=== PATIENT | female | born 1985 | race Caucasian/White ===

== ENCOUNTER 2018-12-13 20:23 | Emergency (ER) | payer MEDICAID ==
[~2018-12-13] VITALS: Ht 160 cm; Wt 0.5 kg
[2018-12-13 21:41] LABS: AMPHET/METH SCREEN,URINE NEGATIVE (NEGATIVE); BARBITURATE SCREEN, URINE NEGATIVE (NEGATIVE); BENZODIAZEPINES SCREEN,URINE NEGATIVE (NEGATIVE); CANNABINOID SCREEN,URINE NEGATIVE (NEGATIVE); COCAINE SCREEN,URINE NEGATIVE (NEGATIVE); METHADONE SCREEN, URINE NEGATIVE (NEGATIVE); OPIATE SCREEN,URINE NEGATIVE (NEGATIVE); PHENCYCLIDINE SCREEN,URINE NEGATIVE (NEGATIVE)
[2018-12-13 22:02] VITALS: BP 127/84
== END 2018-12-13 22:13 | disposition home or self-care (01) ==
LOC: EMS 20:24
DX: R35.0 Frequency of micturition (principal)

== ENCOUNTER 2023-05-26 00:22 | Emergency (ER) | payer MEDICAID ==
[~2023-05-26] VITALS: Ht 160 cm; Wt 52.3 kg
[2023-05-26 00:42] VITALS: BP 135/82; PULSE 89; RESP 17; TEMP 98.3
[2023-05-26] MEDS: TUBERCULIN, PURIFIED PROTEIN DERIVATIVE 5 TU/0.1 ML SYRINGE ID ONE (02:14)
[2023-05-26] MEDS ORDERED: DOXY-354 PO (02:24)
[2023-05-26] MEDS ORDERED: CEPH-558 PO (02:24)
[2023-05-26] MEDS ORDERED: MUPI15CR12 TP (02:24)
== END 2023-05-26 02:43 | disposition home or self-care (01) ==
LOC: EMS 00:22
DX: L02.92 Furuncle, unspecified (principal); Z11.1 Encounter for screening for respiratory tuberculosis
CPT/HCPCS: 99283

== ENCOUNTER 2024-06-03 18:36 | Emergency (ER) | payer SELFPAY ==
[~2024-06-03] VITALS: Ht 160 cm; Wt 50.0 kg
[~2024-06-03 18:36] MED LIST: CEPH-558 PO; DOXY-354 PO; MUPI15CR12 TP
[2024-06-03 19:16] LABS: BASOPHILS % (AUTO) 0.4 % (0.0-2.0); EOSINOPHILS % (AUTO) 0 % (1.0-6.0); HEMATOCRIT 38.2 % (36-46); HEMOGLOBIN 12.6 g/dL (12.0-16.0); LYMPHOCYTES # (AUTO) 1.3 K/uL (1.0-4.8); LYMPHOCYTES % (AUTO) 11.3 % (22.0-44.0); MEAN CORPUSCULAR HEMOGLOBIN 30.4 pg (26.0-34.0); MEAN CORPUSCULAR VOLUME 92 fL (80-100); MONOCYTES # (AUTO) 1.5 K/uL (0.1-1.0); MONOCYTES % (AUTO) 13.6 % (2.0-9.0); NEUTROPHILS # (AUTO) 8.4 K/uL (1.8-7.7); NEUTROPHILS % (AUTO) 74.7 % (40.0-70.0); PLATELET COUNT (AUTO) 252 K/uL (150-450); RED BLOOD CELL COUNT(AUTO) 4.14 MIL/uL (4.00-5.20); WHITE BLOOD COUNT (AUTO) 11.2 K/uL (4.5-11.0)
[2024-06-03 19:24] LABS: ANION GAP 8 mmol/L (8-16); CALCIUM, TOTAL 8.8 mg/dL (8.8-10.5); CARBON DIOXIDE 27 mmol/L (22-29); CHLORIDE 100 mmol/L (98-107); CREATININE 0.71 mg/dL (0.60-1.30); GLOMERULAR FILTR. RATE CALC > 60 mL/min (>60); GLUCOSE,RANDOM 91 mg/dL (70-110); LIPASE 15 U/L (16-77); POTASSIUM 4.1 mmol/L (3.5-5.1); SODIUM SERUM 135 mmol/L (136-145); UREA NITROGEN, BLOOD 8 mg/dL (7-18)
[2024-06-03 19:26] LABS: APPEARANCE,URINE HAZY (CLEAR); BILIRUBIN,URINE NEGATIVE (NEGATIVE); COLOR,URINE YELLOW (YELLOW); GLUCOSE, URINE (UA) NEGATIVE (NEGATIVE); KETONES,URINE TRACE mg/dL (NEGATIVE); LEUKOCYTE ESTERASE ,URINE MODERATE (NEGATIVE); NITRATE,URINE POSITIVE (NEGATIVE); OCCULT BLOOD,URINE SMALL (NEGATIVE); PH,URINE 6.5 (5.0-8.0); PROTEIN,URINE 30-70 mg/dL (NEGATIVE); SPECIFIC GRAVITIY, URINE 1.017 (1.003-1.030); UROBILINOGEN,URINE <=1.0 mg/dL (<=1.0)
[2024-06-03 19:27] LABS: PROTHROMBIN TIME 11.4 SEC (9.4-11.6)
[2024-06-03 19:30] LABS: ALBUMIN 3.3 g/dL (3.4-5.0); BILIRUBIN,DIRECT 0.2 mg/dL (0.00-0.20); BILIRUBIN,TOTAL 0.6 mg/dL (0.1-1.0); TOTAL PROTEIN, SERUM 7.3 g/dL (6.4-8.2)
[2024-06-03 19:44] LABS: BACTERIA,URINE Moderate /HPF (None Seen); RBC,URINE 0-2 /HPF (0-2); SQUAMOUS EPITHELIAL CELL,UR Rare /LPF (None Seen)
[2024-06-03] MEDS: ONDANSETRON HCL 4 MG/2 ML VIAL IVP ONE (20:52)
[2024-06-03] MEDS: SODIUM CHLORIDE 0.9% 2,000 ML IV ONE (20:52)
[2024-06-03] MEDS: ACETAMINOPHEN 500 MG TABLET PO ONE (20:53)
[2024-06-03] MEDS: KETOROLAC TROMETHAMINE 30 MG/ML VIAL IVP ONE (20:54)
[2024-06-03] MEDS ORDERED: ONDA-104 PO (21:06)
[2024-06-03] MEDS ORDERED: ACET-66 PO (21:06)
[2024-06-03] MEDS ORDERED: IBUP-1554 PO (21:06)
[2024-06-03] MEDS: CefTRIAXone SODIUM 2 GM in DEXTROSE 5%-WATER 50 ML IV ONE (21:09)
[2024-06-03 21:45] VITALS: BP 121/69; PULSE 88; RESP 18; TEMP 99.2; O2SAT 98
== END 2024-06-03 22:04 | disposition home or self-care (01) ==
LOC: EMS 18:36
DX: N12 Tubulo-interstitial nephritis, not specified as acute or chronic (principal); Z98.51 Tubal ligation status; Z98.890 Other specified postprocedural states; Z79.899 Other long term (current) drug therapy
CPT/HCPCS: 99285; 76700; 96365; 96375; 80048; 80076; 81001; 83690; 84703; 85025; 85610; 87077; 87086; 87186; 36415; 76856; J1885; J0696; J2405; J7060; J7030